=== PATIENT | female | born 1960 | race Caucasian/White ===

== ENCOUNTER → 2020-07-31 11:22 | Outpatient (CLI) | payer OTHER, SELFPAY ==
--- NOTE | ~2020-07-31 | DEXA_ITS ---
Bone Density Report Name: Marielle Bentley Age: 59 Sex: Female Ethnicity: White Date of : 1960 Indication: osteopenia; prior fracture; hysterectomy; postmenopausal Referring Provider: Brandy, Bradley Chavez Study: Bone densitometry was performed. Exam Date: July 31, 2020 Accession number: [id number] Bone Density: Region BMD T-score Z-score Classification AP Spine (L1-L4) 0.842 -1.9 -0.5 Osteopenia Femoral Neck (Left) 0.540 -2.8 -1.6 Osteoporosis Total Hip (Left) 0.610 -2.7 -1.8 Osteoporosis Femoral Neck (Right) 0.587 -2.4 -1.1 Osteopenia Total Hip (Right) 0.675 -2.2 -1.3 Osteopenia Total Hip Mean 0.643 -2.5 -1.6 Osteopenia World Health Organization criteria for BMD impression classify patients as: Normal (T-score at or above -1.0), Osteopenia (T-score between -1.0 and -2.5), or Osteoporosis (T-score at or below -2.5). 10-year Fracture Risk: FRAX not reported because: Some T-score for Spine Total or Hip Total or Femoral Neck at or below -2.5 Previous Exams: Region Exam Age BMD T-score BMD Change BMD Change Date g/cm2 vs Baseline vs Previous AP Spine(L1-L4) 07/31/2020 59 0.842 -1.9 0.008 -0.002 09/25/2015 54 0.844 -1.8 0.010 -0.059* 03/06/2014 53 0.903 -1.3 0.070* 0.070* 12/16/2011 51 0.834 -1.9 Total Hip(Left) 07/31/2020 59 0.610 -2.7 -0.048* -0.065* 09/25/2015 54 0.675 -2.2 0.016 -0.016 03/06/2014 53 0.691 -2.1 0.033* 0.033* 12/16/2011 51 0.659 -2.3 Total Hip(Right) 07/31/2020 59 0.675 -2.2 -0.006 -0.015 09/25/2015 54 0.690 -2.1 0.009 -0.036* 03/06/2014 53 0.727 -1.8 0.045* 0.045* 12/16/2011 51 0.681 -2.1 *Denotes significance at 95% confidence level, LSC for AP Spine = 0.022 g/cm2, LSC for Total Hip = 0.027 g/cm2 Clinical Information Provided by Patient: Has had a low trauma fracture Has the following medical conditions: Hysterectomy Patient maximum height was 63 Menopause Age: 51 Onset of menses at age 14 Number of children 0 Impression: The patient has established osteoporosis, based on the Left Femoral Neck T-score and the existence of a prior fracture. The patient has risk factors, including: previous fracture. The BMD for the Total Hip(Left) decreased, changing by -0.065 since the last DXA exam. Discussion: HIGH RISK
== END ==
PROVIDERS: PCP Family Medicine; Visit Provider Family Medicine
DX: Z78.0 Asymptomatic menopausal state (principal); M85.88 Other specified disorders of bone density and structure, other site; M81.0 Age-related osteoporosis without current pathological fracture; M85.851 Other specified disorders of bone density and structure, right thigh
CPT/HCPCS: 77080

== ENCOUNTER → 2020-09-29 15:18 | Outpatient (CLI) | payer OTHER, SELFPAY ==
--- NOTE | ~2020-09-29 | MM_ITS ---
EXAMINATION: MM screening [facility] BI w gianluca HISTORY: Screening mammogram TECHNIQUE: Craniocaudal and mediolateral oblique 3-D tomosynthesis images were obtained and synthetic 2-D images were generated. CAD analysis was submitted and interpreted. COMPARISON: 07/10/2019, 06/13/2018, 05/26/2017 bilateral digital screening mammogram examinations BREAST PARENCHYMAL COMPOSITION: The breasts are heterogeneously dense, which may obscure small masses . FINDINGS: There is no evidence of suspicious mass, calcification, or architectural distortion to sugg est malignancy in either breast. There has been no suspicious interval change. IMPRESSION: 1. No mammographic evidence of malignancy. 2. Recommend routine screening mammography in one year. BI-RADS Category 1: Negative Reviewed, dictated and finalized at location A. TER TENDER
== END ==
PROVIDERS: PCP Family Medicine; Visit Provider Family Medicine
DX: Z12.31 Encounter for screening mammogram for malignant neoplasm of breast (principal)
CPT/HCPCS: 77063; 77067

== ENCOUNTER → 2021-09-14 18:01 | Outpatient (CLI) | payer OTHER, SELFPAY ==
--- NOTE | ~2021-09-14 | DEXA_ITS ---
Bone Density Report Name: Marielle Bentley Age: 60 Sex: Female Ethnicity: White Date of : 1960 Indication: postmenopausal osteoporosis; monitoring treatment; hysterectomy; Referring Provider: Brandy, Bradley Chavez Study: Bone densitometry was performed. Exam Date: September 14, 2021 Accession number: [id number] Bone Density: Region BMD T-score Z-score Classification AP Spine (L1-L4) 0.859 -1.7 -0.3 Osteopenia Femoral Neck (Left) 0.536 -2.8 -1.5 Osteoporosis Total Hip (Left) 0.668 -2.2 -1.3 Osteopenia Femoral Neck (Right) 0.603 -2.2 -0.9 Osteopenia Total Hip (Right) 0.698 -2.0 -1.1 Osteopenia Total Hip Mean 0.683 -2.1 -1.2 Osteopenia World Health Organization criteria for BMD impression classify patients as: Normal (T-score at or above -1.0), Osteopenia (T-score between -1.0 and -2.5), or Osteoporosis (T-score at or below -2.5). 10-year Fracture Risk: FRAX not reported because: Some T-score for Spine Total or Hip Total or Femoral Neck at or below -2.5 Treated for osteoporosis Previous Exams: Region Exam Age BMD T-score BMD Change BMD Change Date g/cm2 vs Baseline vs Previous AP Spine(L1-L4) 09/14/2021 60 0.859 -1.7 0.026* 0.018 07/31/2020 59 0.842 -1.9 0.008 -0.002 09/25/2015 54 0.844 -1.8 0.010 -0.059* 03/06/2014 53 0.903 -1.3 0.070* 0.070* 12/16/2011 51 0.834 -1.9 Total Hip(Left) 09/14/2021 60 0.668 -2.2 0.009 0.057* 07/31/2020 59 0.610 -2.7 -0.048* -0.065* 09/25/2015 54 0.675 -2.2 0.016 -0.016 03/06/2014 53 0.691 -2.1 0.033* 0.033* 12/16/2011 51 0.659 -2.3 Total Hip(Right) 09/14/2021 60 0.698 -2.0 0.017 0.023 07/31/2020 59 0.675 -2.2 -0.006 -0.015 09/25/2015 54 0.690 -2.1 0.009 -0.036* 03/06/2014 53 0.727 -1.8 0.045* 0.045* 12/16/2011 51 0.681 -2.1 *Denotes significance at 95% confidence level, LSC for AP Spine = 0.022 g/cm2, LSC for Total Hip = 0.027 g/cm2 Clinical Information Provided by Patient: Is being treated for osteoporosis Has used the following medications: Fosamax (i.e. alendronate), Vitamin D, Levothyroxine Has the following medical conditions: Hysterectomy Patient maximum height was 63.3 Menopause Age: 44 Onset of menses at age 14 Number of children 0
== END ==
PROVIDERS: PCP Family Medicine; Visit Provider Family Medicine
DX: M81.0 Age-related osteoporosis without current pathological fracture (principal); M85.88 Other specified disorders of bone density and structure, other site; M85.852 Other specified disorders of bone density and structure, left thigh; M85.851 Other specified disorders of bone density and structure, right thigh
CPT/HCPCS: 77080

== ENCOUNTER → 2021-11-19 13:27 | Outpatient (CLI) | payer OTHER, SELFPAY ==
--- NOTE | ~2021-11-19 | MM_ITS ---
EXAMINATION: MM screening le[facility] BI w gianluca HISTORY: Screening TECHNIQUE: Craniocaudal and mediolateral oblique 3-D tomosynthesis images were obtained and synthetic 2-D images were generated. CAD analysis was submitted and interpreted. COMPARISON: Comparison to multiple prior studies sequentially, with oldest reviewed study dated 05/06. BREAST PARENCHYMAL COMPOSITION: The breasts are heterogenously dense, which may obscure small masses FINDINGS: There is no evidence of suspicious mass, calcification, or architectural distortion to sugg est malignancy in either breast. There has been no suspicious interval change. IMPRESSION: 1. No mammographic evidence of malignancy. 2. Recommend routine screening mammography in one year. BI-RADS Category 1: Negative Reviewed, dictated and finalized at location A. ROL SYSTEMS TECHNICIAN
== END ==
PROVIDERS: PCP Family Medicine; Visit Provider Family Medicine
DX: Z12.31 Encounter for screening mammogram for malignant neoplasm of breast (principal)
CPT/HCPCS: 77063; 77067

== ENCOUNTER 2022-10-08 07:01 | Outpatient (CLI) | payer OTHER, SELFPAY ==
[2022-10-08 07:40] LABS: Basophils Percent Auto 0.5 % (0.2-1.2); Eosinophils Absolute Auto 0.1 K/mm3 (0-0.3); Eosinophils Percent Auto 1.8 % (0-4.4); Hematocrit 40.7 % (37.0-47.0); Hemoglobin 13.6 g/dL (12.0-15.0); Lymphocytes Absolute Auto 1.63 K/mm3 (0.9-3.2); Lymphocytes Percent Auto 41.6 % (18.3-44.2); Mean Corpuscular HGB Conc 33.4 g/dl (32-36); Mean Corpuscular Hemoglobin 30.6 pg (26-34); Mean Corpuscular Volume 91.5 fl (80-100); Mean Platelet Volume 8.9 fl (7.4-10.4); Monocytes Absolute Auto 0.5 K/mm3 (0.1-0.6); Monocytes Percent Auto 11.7 % (2.6-8.5); Neutrophils Absolute Auto 1.7 K/mm3 (1.3-6.7); Neutrophils Percent Auto 44.4 % (45.5-73.1); Platelet Count Result 226 k/mm3 (150-375); Red Blood Count 4.45 M/mm3 (4.2-5.4); Red Cell Distribution Width 11.9 % (11.5-14.5); White Blood Count 3.9 K/mm3 (4.5-10.0)
[2022-10-08 09:56] LABS: Alanine Aminotransferase 18 U/L (6-35); Albumin Level 4.2 g/dL (3.5-5.1); Alkaline Phosphatase 51 U/L (38-126); Anion Gap 6 mmol/L (8-16); Aspartate Amino Transferase 27 U/L (14-36); Bilirubin,Total 0.6 mg/dL (0.2-1.3); Blood Urea Nitrogen 19 mg/dL (7-17); Calcium 8.8 mg/dL (8.4-10.2); Carbon Dioxide 29 mmol/L (22-30); Chloride 103 mmol/L (98-107); Cholesterol 273 mg/dL (0-200); Estimated Glomerular Filt Rate > 60; Glucose 95 mg/dL (65-110); HDL Direct 82 mg/dL; Potassium 4.1 mmol/L (3.4-5.0); Sodium 138 mmol/L (137-145); Triglycerides 119 mg/dL (<150)
[2022-10-08 10:08] LABS: LDL Cholesterol Direct 126 mg/dL
== END 2022-10-08 07:02 | disposition home or self-care (01) ==
LOC: ANHLAB 07:05
PROVIDERS: PCP Family Medicine; Visit Provider Family Medicine
DX: Z00.00 Encounter for general adult medical examination without abnormal findings (principal); E03.9 Hypothyroidism, unspecified; E78.2 Mixed hyperlipidemia
CPT/HCPCS: 36415; 80053; 80061; 84443; 85025

== ENCOUNTER 2023-01-11 17:31 | Outpatient (CLI) | payer OTHER, SELFPAY ==
--- NOTE | ~2023-01-11 | MM_ITS ---
EXAMINATION: MM screening [facility] BI w gianluca HISTORY: Screening mammogram TECHNIQUE: Craniocaudal and mediolateral oblique 3-D tomosynthesis images were obtained and synthetic 2-D images were generated. CAD analysis was submitted and interpreted. COMPARISON: 11/19/2021, 09/29/2020, 07/10/2019 BREAST PARENCHYMAL COMPOSITION: The breasts are heterogeneously dense, which may obscure small masses . FINDINGS: RIGHT BREAST: An asymmetry is present in the posterior third of the outer breast 8.5 cm from the nipp le on the craniocaudal view. LEFT BREAST: No suspicious mass, calcification, or architectural distortion are identified to suggest malignancy. There has been no suspicious interval change. IMPRESSION: 1. Right breast asymmetry. 2. Additional mammographic views and possible breast ultrasound are recommended. BI-RADS Category 0: Incomplete: Needs additional imaging evaluation. Reviewed, dictated and finalized at location A. OMER SUPPORT ENGINEER IMPRESSION: 1. Right breast asymmetry. 2. Additional mammographic views and possible breast ultrasound are recommended . BI-RADS Category 0: Incomplete: Needs additional imaging evaluation.
== END 2023-01-11 17:32 | disposition home or self-care (01) ==
PROVIDERS: PCP Family Medicine; Visit Provider Family Medicine
DX: Z12.31 Encounter for screening mammogram for malignant neoplasm of breast (principal); R92.8 Other abnormal and inconclusive findings on diagnostic imaging of breast
CPT/HCPCS: 77063; 77067

== ENCOUNTER 2023-02-08 12:38 | Outpatient (CLI) | payer OTHER, SELFPAY ==
--- NOTE | ~2023-02-08 | MM_ITS ---
EXAMINATION: MM diagnostic leann RT w gianluca HISTORY: Mammographic asymmetry reported in the posterior third of the outer right breast 8.5 cm from the nipple on screening craniocaudal view of 01/11/2023 TECHNIQUE: Additional 3-D tomosynthesis images of the right breast were performed and synthetic 2-D i mages were generated. CAD analysis was submitted and interpreted. COMPARISON: 01/11/2023 bilateral screening mammogram FINDINGS: The area of asymmetry is not confirmed on these supplemental views, consistent with overlap ping fibroglandular tissue. IMPRESSION: 1. No mammographic evidence of malignancy 2. Routine annual mammographic screening is recommended BI-RADS Category 1: Negative Reviewed, dictated and finalized at location A.
== END 2023-02-08 12:39 | disposition home or self-care (01) ==
PROVIDERS: PCP Family Medicine; Visit Provider Family Medicine
DX: R92.8 Other abnormal and inconclusive findings on diagnostic imaging of breast (principal)
CPT/HCPCS: 77061; 77065; G0279

== ENCOUNTER 2023-09-03 14:01 | Emergency (ER) | payer OTHER, SELFPAY ==
[2023-09-03 14:10] VITALS: BP 119/58; PULSE 71; RESP 18; TEMP 36.7; O2SAT 100
--- NOTE | 2023-09-03 14:30 | ED.URI ---
HPI - URI/Sore Throat General Chief Complaint: Extremity Problem,Nontraumatic Stated Complaint: pain in left wrist Time Seen by Provider: 09/03/23 14:13 Source: patient and RN notes reviewed Mode of arrival: ambulatory Limitations: no limitations History of Present Illness HPI Narrative: Patient presents today complaining of left wrist pain. It initially started 3 days ago at home spontaneously when she turned her wrist. States the pain was very sharp and lasted for approximately 30 minutes. Each day since that time she has had an episode of sharp pain 1-2 times per day that has lasted for only minutes. States she can move her wrist in another present peoples and resolve the pain quite quickly. She denies any known injury or trauma. States her pain is exacerbated by repetitive motions that she needs to do out work. Denies numbness or tingling. She is currently pain-free. She has not tried any [id number] interventions for her symptoms prior to arrival. Related Data Home Medications Medication Instructions Recorded Confirmed Fosamax 09/03/23 levothyroxine 09/03/23 Allergies Allergy/AdvReac Type Severity Reaction Status Date / Time clavulanic acid Allergy Intermediate DIARRHEA, Verified 09/03/23 14:06 NAUSEA codeine Allergy Intermediate DIARRHEA, Verified 09/03/23 14:06 NAUSEA metronidazole Allergy Intermediate DIARRHEA,NA Verified 09/03/23 14:06 USEA Penicillins Allergy Intermediate DIARRHEA, Verified 09/03/23 14:06 NAUSEA Review of Systems Review of Systems: CONSTITUTIONAL: Denies body aches, fever, chills, or sweats. EYES: Denies visual changes, redness, or discharge. ENT: Denies rhinorrhea, congestion, sore throat, or otalgia. CARDIOVASCULAR: Denies chest pain, palpitations, or edema. RESPIRATORY: Denies cough or dyspnea. GASTROINTESTINAL: Denies abdominal pain, nausea, vomiting, or diarrhea. GENITOURINARY: Denies dysuria or hematuria. SKIN: Denies rash, itching, or wounds. MUSCULOSKELETAL: Denies back pain, or myalgia.+ left wrist pain NEUROLOGIC: Denies headache, numbness, tingling, or weakness. PSYCH: Denies depression or anxiety. [facility] Past Medical History Medical History (Updated 09/03/23 @ 14:36 by Amparo Watts, RESIDENTIAL ASSISTANT, BC) Hypothyroidism Osteoporosis Comments At time of signature, I have reviewed and agree with nursing past medical, surgical, social and family history unless otherwise noted. Please see nursing chart for further information. There is no relevant family history pertinent to the presenting complaint Exam Narrative: GENERAL: Well-appearing, well-nourished, and in no acute distress. HEAD: Normocephalic, atraumatic. EYES: EOMI. No redness or drainage. Conjunctivae normal. ENT: Mucous membranes pink and moist. NECK: Normal AROM. CHEST: No respiratory distress. EXTREMITIES: Left wrist: Wrist is nontender. No edema, ecchymosis, or erythema noted. Patient localizes her pain to the dorsum of the wrist. Distal sensation intact. Capillary refill normal. Radial pulse normal. Full range of motion of the wrist without increased pain. SKIN: Warm, dry, no rash. Capillary refill normal. Normal skin turgor. NEURO: No focal deficits. Alert and oriented x3. Gait steady. PSYCH: Normal affect. No signs of depression or anxiety. Course Course Level of Care: Express Care Visit Vital Signs Vital signs: Vital Signs Temperature 98.1 F 09/03/23 14:10 Pulse Rate 71 09/03/23 14:10 Respiratory Rate 18 09/03/23 14:10 Blood Pressure 119/58 L 09/03/23 14:10 Pulse Oximetry 100 09/03/23 14:10 Oxygen Delivery Room Air 09/03/23 14:10 Temperature 98.1 F 09/03/23 14:10 Pulse Rate 71 09/03/23 14:10 Respiratory Rate 18 09/03/23 14:10 Blood Pressure 119/58 L 09/03/23 14:10 Pulse Oximetry 100 09/03/23 14:10 Oxygen Delivery Room Air 09/03/23 14:10 Reviewed MDM - URI/Sore Throat MDM Narrative Medical deci
== END 2023-09-03 14:40 | disposition home or self-care (01) ==
PROVIDERS: Emergency Provider Nurse Practitioner; PCP Family Medicine
DX: M25.532 Pain in left wrist (principal); E03.9 Hypothyroidism, unspecified; M81.0 Age-related osteoporosis without current pathological fracture
CPT/HCPCS: 99213; G0463

== ENCOUNTER 2023-09-22 15:00 | Outpatient (RCR) | payer OTHER, SELFPAY ==
--- NOTE | 2023-08-17 14:54 | PTOPEVAL1 ---
Assessment and note entered by Davy Villareal Evaluation Information Assessment Status Evaluation Diagnosis chronic low back pain Onset 11/07/22 Subjective Information Pt. reports back pain began in November. 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 She describes pain going across the waistline. She did have only 1 episode of pain shooting into the right leg. She reports that pain can increase with prolonged sitting and prolonged standing. She reports that her mobility has recently been decreased. She continues to work despite her discomfort. She reports that her sleep is not disturbed. She denies taking any medications. Pt . reports that her goal for therapy is to be able to decrease her pain. Reported Pain Level Pain Score 3: Self Report Assessment PT Clinical Summary Pt. is a 62 year old female who enters the clinic with low back pain. She presents with impaired trunk mobility, impaired proximal l.e. strength, impaired postural awareness, impaired flexibility and pain. Continued skilled PT is indicated in order to improve these areas to allow for improved comfort with all IADL's. Plan of Care Interventions Electrical Stimulation,Hot Pack/Cold Pack,Manual Therapy,Neuro Re-education,Patient/Caregiver Education,Therapeutic Activities,Therapeutic Exercise PT Services Indicated Yes Treatment Frequency and 2x/week x 10 visits Duration These treatments will address the objective and functional deficits as defined above. The patient will be advanced safely and appropriately in order for the patient to progress towards his/her prior level of function. Additional exercises will be introduced and as well as a comprehensive home exercise program upon discharge, if needed, ?to ensure carryover of functional gains achieved in the clinic. This treatment plan has been reviewed and agreement upon by the patient.
--- NOTE | 2023-09-22 15:48 | PTOPDC ---
Assessment and note entered by Abisai Valdivia, PT Evaluation Information Assessment Status Discharge Diagnosis chronic low back pain Onset 11/07/22 Subjective Information Reports that she has seen progress with low back pain. Most recently she encountered a wrist injury on her left side and that has been the biggest source of her recent pain. She is having trouble weight bearing through her wrist. Overall feels back is much better and would like to discharge to [facility] at this time. Reported Pain Level Pain Score 2: Self Report Assessment PT Clinical Summary Patient continues to show some weakness in hips but reports that she has not been at all inhibited by her back in work related function. Reports that her wrist is her bigger issue at this time and requests not t perform lifting activity with both hands at this time. Feels able to lift everything that she needs to for work with her right hand at this time. Patient demonstrates full understanding of [facility] at s time and is suitable for discharge. Plan of Care PT Services Indicated Discharge to [facility]
--- NOTE | 2023-09-22 15:48 | OPREHPOC ---
Outpatient Therapy Plan of Care This is a Multidisciplinary Plan of Care that may contain components documented by all disciplines (PT, OT, and ST.) PT Problem 1 PT Problem #1 Knowledge Deficit PT Goal 1 Goal Pt. will be independent with a HEP addressing core strength and stability. Target Visit 2 Progress Met PT Problem 2 PT Problem #2 Pain PT Goal 1 Goal Pt. will report pain levels of 1/10 at worst with prolonged standing Target Visit 10 Progress Partially Met Comment Greatly improved to 2/10 at worst PT Problem 3 PT Problem #3 Impaired Strength PT Goal 1 Goal Pt. will improve proximal l.e. strength to 5/5 at all mm. groups Target Visit 10 Progress Partially Met Comment Improved aric. Still need to continue HEP for lateral hip strength. PT Problem 4 PT Problem #4 Impaired Functional Mobil PT Goal 1 Goal Pt. will demonstrate safe lifting mechanics with floor to waist lift of 20# object. Target Visit 10 Progress Partially Met Comment Able to lift iwth R hand. L wrist injury limiting use of L hand for lifting acitivty.
== END 2023-09-22 16:10 | disposition home or self-care (01) ==
LOC: ANHPT 15:00
PROVIDERS: PCP Family Medicine; Visit Provider Family Medicine
DX: M54.50 Low back pain, unspecified (principal); M81.0 Age-related osteoporosis without current pathological fracture; G89.29 Other chronic pain
CPT/HCPCS: 97014; 97110; 97161; 97530; G0283

== ENCOUNTER 2023-10-06 07:14 | Outpatient (CLI) | payer OTHER, SELFPAY ==
[2023-10-06 08:05] LABS: Basophils Percent Auto 0.6 % (0.2-1.2); Eosinophils Absolute Auto 0.1 K/mm3 (0-0.3); Eosinophils Percent Auto 2.8 % (0-4.4); Hematocrit 42.4 % (37.0-47.0); Hemoglobin 13.9 g/dL (12.0-15.0); Immature Granulocyte Absolute 0.01 K/mm3 (0.00-0.031); Immature Granulocyte Percent A 0.2 % (0-0.5); Lymphocytes Absolute Auto 1.74 K/mm3 (0.9-3.2); Lymphocytes Percent Auto 37.1 % (18.3-44.2); Mean Corpuscular HGB Conc 32.8 g/dl (32-36); Mean Corpuscular Hemoglobin 30.6 pg (26-34); Mean Corpuscular Volume 93.4 fl (80-100); Mean Platelet Volume 9.3 fl (7.4-10.4); Monocytes Absolute Auto 0.6 K/mm3 (0.1-0.6); Monocytes Percent Auto 11.7 % (2.6-8.5); Neutrophils Absolute Auto 2.2 K/mm3 (1.3-6.7); Neutrophils Percent Auto 47.6 % (45.5-73.1); Platelet Count Result 218 k/mm3 (150-375); Red Blood Count 4.54 M/mm3 (4.2-5.4); Red Cell Distribution Width 12.1 % (11.5-14.5); White Blood Count 4.7 K/mm3 (4.5-10.0)
[2023-10-06 08:16] LABS: Alanine Aminotransferase 19 U/L (6-35); Albumin Level 4.3 g/dL (3.5-5.1); Alkaline Phosphatase 49 U/L (38-126); Anion Gap 6 mmol/L (8-16); Aspartate Amino Transferase 25 U/L (14-36); Bilirubin,Total 1.1 mg/dL (0.2-1.3); Blood Urea Nitrogen 21 mg/dL (7-17); Calcium 8.9 mg/dL (8.4-10.2); Carbon Dioxide 29 mmol/L (22-30); Chloride 105 mmol/L (98-107); Cholesterol 259 mg/dL (0-200); Estimated Glomerular Filt Rate > 60; Glucose 90 mg/dL (65-110); HDL Direct 93 mg/dL; Potassium 4.3 mmol/L (3.4-5.0); Sodium 140 mmol/L (137-145); Triglycerides 79 mg/dL (<150)
[2023-10-06 08:27] LABS: LDL Cholesterol Direct 126 mg/dL
[2023-10-06 08:53] LABS: Vitamin D 25 Hydroxy 37.2 ng/mL
== END 2023-10-06 07:15 | disposition home or self-care (01) ==
LOC: ANHLAB 07:18
PROVIDERS: PCP Family Medicine; Visit Provider Family Medicine
DX: Z00.00 Encounter for general adult medical examination without abnormal findings (principal); E03.9 Hypothyroidism, unspecified; E78.2 Mixed hyperlipidemia; M81.0 Age-related osteoporosis without current pathological fracture
CPT/HCPCS: 36415; 80053; 80061; 82306; 84443; 85025

== ENCOUNTER 2023-11-11 08:15 | Outpatient (RCR) | payer OTHER, SELFPAY ==
--- NOTE | 2023-10-26 09:01 | OTOPEVAL1 ---
Assessment and note entered by TED Bell/Maria Elena, CHT Evaluation Information Assessment Status Evaluation Diagnosis Left wrist tendonitis Subjective Information Patient has been experiencing left wrist pain since about 08/31/23. She has been wearing a left wrist immobilizer at work. 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 Reports no paresthesias. She is right handed. Reported Pain Level Pain Score 0: Self Report Additional Pain Score Comments No pain at rest. When the pain occurs it gets up to 6-7/10. Assessment OT Clinical Summary Patient referred to OT with left wrist pain consistent with tendonitis. She has been having difficulties with work tasks due to the pain. Skilled OT indicated to for use of modalities, manual therapy, HEP instruction and progression, and therapeutic exercise to reduce pain and improve functional use of her left UE. Plan of Care Interventions Therapeutic Exercise,Manual Therapy,Therapeutic Activities,Hot Pack/Cold Pack,Ultrasound,Paraffin OT Services Indicated Yes Treatment Frequency and 1x/week for 4 weeks Duration These treatments will address the objective and functional deficits as defined above. The patient will be advanced safely and appropriately in order for the patient to progress towards his/her prior level of function. Additional exercises will be introduced and as well as a comprehensive home exercise program upon discharge, if needed, ?to ensure carryover of functional gains achieved in the clinic. This treatment plan has been reviewed and agreement upon by the patient.
--- NOTE | 2023-11-11 08:37 | OTOPDC ---
Assessment and note entered by Lencho Damon, TED/Maria Elena, CHT Discharge Summary 11/11/23 Diagnosis Left wrist tendonitis Subjective Information Patient reports her wrist is feeling much better. She is no longer wearing the immobilizer and has returned to using that wrist/hand without limitations. Reports some residual soreness with exercise. She also retired at the start of this year, so she wont be doing repetitive housekeeping tasks which appears to have caused her sypmtoms. Reported Pain Level Pain Score 0: Self Report Additional Pain Score Comments No pain at rest and she reports no pain most of the time. She is using her hand for ADLs, workouts , and housework without difficulty. She reports her forearm has gotten up to 2/10 at worst in the last week. This improved from getting up to 7/ 10. Assessment OT Clinical Summary Patient referred to OT with left wrist pain consistent with tendonitis. She has made excellent progress with therapy, progressing with improved strength and reduced pain. She is back to doing her regular workout program without limitations. No further skilled OT indicated at this time. D/C with patient independent with HEP. Plan of Care OT Services Indicated No
== END 2023-11-11 16:27 | disposition home or self-care (01) ==
LOC: ANHOT 08:15
PROVIDERS: PCP Family Medicine; Visit Provider Orthopaedic Surgery
DX: M77.8 Other enthesopathies, not elsewhere classified (principal)
CPT/HCPCS: 97018; 97110; 97165

== ENCOUNTER 2023-11-11 13:44 | Outpatient (CLI) | payer OTHER, SELFPAY ==
--- NOTE | ~2023-11-11 | DEXA_ITS ---
Bone Density Report Name: JANETH LINK Age: 63 Sex: Female Ethnicity: White Date of : 1960 Indication: postmenopausal; screening for osteoporosis; hysterectomy; Referring Provider: BEATA, MICHAEL Chavez Study: Bone densitometry was performed. Exam Date: November 11, 2023 Accession number: [id number] Bone Density: Region BMD T-score Z-score Classification AP Spine(L1-L4) 0.846 -1.8 -0.3 Osteopenia Femoral Neck (Left) 0.560 -2.6 -1.2 Osteoporosis Total Hip (Left) 0.656 -2.3 -1.3 Osteopenia Femoral Neck (Right) 0.575 -2.5 -1.1 Osteoporosis Total Hip (Right) 0.753 -1.6 -0.5 Osteopenia Total Hip Mean 0.704 -2.0 -0.9 Osteopenia World Health Organization criteria for BMD impression classify patients as: Normal (T-score at or above -1.0), Osteopenia (T-score between -1.0 and -2.5), or Osteoporosis (T-score at or below -2.5). 10-year Fracture Risk: FRAX not reported because: Some T-score for Spine Total or Hip Total or Femoral Neck at or below -2.5 Treated for osteoporosis Clinical Information Provided by Patient: Is being treated for osteoporosis Has used the following medications: Fosamax (i.e. alendronate) Has the following medical conditions: Hysterectomy Patient maximum height was 63.0 Menopause Age: 44 Onset of menses at age 14 Number of children 0 Impression: The patient has osteoporosis, based on the Left Femoral Neck T-score. Discussion: It is important to ask patients whether they are taking their medications and to encourage continued and appropriate compliance with their osteoporosis therapies to reduce fracture risk. It is also important to review their risk factors and encourage appropriate calcium and vitamin D intakes, exercise, fall prevention and other lifestyle measures. Follow-Up: Consider a repeat BMD and Vertebral Fracture Assessment (VFA) exam in 2 years or sooner if medically necessary, to reassess this patient's status. Reported by: [facility] on 11/11/2023 2:32:00 PM. Reviewed, dictated and finalized at location ANenita MATHUR
== END 2023-11-11 13:45 | disposition home or self-care (01) ==
LOC: ANHIMG 13:46
PROVIDERS: PCP Family Medicine; Visit Provider Family Medicine
DX: M81.0 Age-related osteoporosis without current pathological fracture (principal); M85.89 Other specified disorders of bone density and structure, multiple sites
CPT/HCPCS: 77080